=== PATIENT | male | born 1995 | race African-American/Black ===

== ENCOUNTER 2021-10-17 11:36 | Emergency (ER) | payer SELFPAY ==
[~2021-10-17] VITALS: Ht 170 cm; Wt 105.0 kg
[2021-10-17] MEDS ORDERED: RT-ALBUTEROL/IPRATROPIUM 3 ML (DUONEB) VIAL INH ONE (12:15)
--- NOTE | 2021-10-17 12:28 | ED Respiratory ---
General Chief Complaint: Respiratory Problems Stated Complaint: SOB Nursing Triage Note: PT TO [facility] BY [facility] WITH CC OF SOB Source: patient, other (commercial loan officer) (NAVEED MIDDLETON APRN) History of Present Illness Date Seen by Provider: October 17, 2021 Time Seen by Provider: 12:13 Initial Comments This is a 26-year-old male who presented to the ER via [facility] for complaints of shortness of breath over the past 3 to 4 days. He does have a history of asthma and states that he has been out of his albuterol inhaler for "quite a while". He is currently homeless and living in poor conditions in a friends shed. Reports subjective fevers, chills, wheezing, shortness of breath. He denies chest pain, nausea, vomiting, abdominal pain, rashes, or any symptoms. Did not receive COVID vaccines. (NAVEED MIDDLETON APRN) Allergies and Home Medications Allergies Coded Allergies: No Known Allergies (Verified Allergy, Unknown, 10/17/21) Patient Home Medication List Home Medication List Reviewed: Yes (NAVEED MIDDLETON APRN) Azithromycin (Azithromycin) 250 Mg Tablet, 250 MG PO DAILY Prescribed by: NAVEED MIDDLETON on 10/17/21 141 Methylprednisolone (Methylprednisolone Dose Pack) 4 Mg Tab.ds.pk, 4 MG PO UD Prescribed by: NAVEED MIDDLETON on 10/17/21 141 Review of Systems Review of Systems Constitutional: see HPI EENTM: no symptoms reported Respiratory: see HPI Cardiovascular: no symptoms reported Gastrointestinal: no symptoms reported Genitourinary: no symptoms reported Musculoskeletal: no symptoms reported Skin: no symptoms reported Psychiatric/Neurological: No Symptoms Reported Hematologic/Lymphatic: No Symptoms Reported Immunological/Allergic: no symptoms reported (NAVEED MIDDLETON APRN) Past Wfclofg-Fnovdv-Krutrl Hx Patient Social History Tobacco Use?: No Substance use?: No Alcohol Use?: No (NAVEED MIDDLETON APRN) Past Medical History Surgery/Hospitalization HX: RT ANKLE (NAVEED MIDDLETON APRN) Physical Exam Vital Signs - First Documented 10/17/21 11:45 Temp 35.8 Pulse 116 Resp 22 B/P (MAP) 146/112 (123) Pulse Ox 95 O2 Delivery Nasal Cannula O2 Flow Rate 2.00 (HUA DAVENPORT MD) Capillary Refill : Less Than 3 Seconds (NAVEED MIDDLETON APRN) Height: '" Weight: lbs. oz. kg; 36.00 BMI Method: General Appearance: WD/WN, no apparent distress Eyes: Bilateral Eye Normal Inspection, Bilateral Eye EOMI HEENT: PERRL/EOMI, normal ENT inspection, pharynx normal Neck: full range of motion, normal inspection Respiratory: chest non-tender, no respiratory distress, no accessory muscle use, decreased breath sounds, wheezing, expiration Cardiovascular: regular rate, rhythm, no edema, no murmur Gastrointestinal: normal bowel sounds, non tender, soft Extremities: non-tender, normal inspection Neurologic/Psychiatric: alert, normal mood/affect, oriented x 3 Skin: normal color, warm/dry Lymphatic: no adenopathy (NAVEED MIDDLETON APRN) Progress/Results/Core Measures Suspected Sepsis SIRS Temperature: Pulse: 116 Respiratory Rate: 22 Laboratory Tests 10/17/21 11:42: White Blood Count 8.6 Blood Pressure 146 /112 Mean: 123 Laboratory Tests 10/17/21 11:42: Creatinine 1.01, Platelet Count 362, Total Bilirubin 0.6 (NAVEED MIDDLETON APRN) Results/Orders Lab Results Laboratory Tests Test 10/17/21 11:42 10/17/21 12:00 Range/Units White Blood Count 8.6 4.3-11.0 10^3/uL Red Blood Count 5.58 H 4.30-5.52 10^6/uL Hemoglobin 17.0 13.3-17.7 g/dL Hematocrit 50 40-54 % Mean Corpuscular Volume 90 80-99 fL Mean Corpuscular Hemoglobin 31 25-34 pg Mean Corpuscular Hemoglobin Concent 34 32-36 g/dL Red Cell Distribution Width 13.8 10.0-14.5 % Platelet Count 362 130-400 10^3/uL Mean Platelet Volume 9.7 9.0-12.2 fL Immature Granulocyte % (Auto) 0 % Neutrophils (%) (Auto) 65 42-75 % Lymphocytes (%) (Auto) 22 12-44 % Monocytes (%) (Auto) 9 0-12 % Eosinophils (%) (Auto) 4 0-10 % Basophils (%) (Auto) 0 0-10 % Neutrophils # (Auto) 5.6 1.8-7.8 10^3/uL Lymphocytes # (Auto) 1.9 1.0-4.0 10^3/uL Monocytes # (Auto) 0.8 0.0-1.0 10^3/uL Eosinophils # (Auto) 0.4 H 0.0-0.3 10^3/uL Basophils # (Auto) 0.0 0.0-0.1 10^3/uL Immature Granulocyte # (Auto) 0.0 0.0-0.1 10^3/uL Sodium Level 138 135-145 MMOL/L Potassium Level 3.8 3.6-5.0 MMOL/L Chloride Level 104 98-107 MMOL/L Carbon Dioxide Level 20 L 21-32 MMOL/L Anion Gap 14 5-14 MMOL/L Blood Urea Nitrogen 7 7-18 MG/DL Creatinine 1.01 0.60-1.30 MG/DL Estimat Glomerular Filtration Rate 105 BUN/Creatinine Ratio 7 Glucose Level 98 70-105 MG/DL Calcium Level 9.5 8.5-10.1 MG/DL Corrected Calcium 9.3 8.5-10.1 MG/DL Total Bilirubin 0.6 0.1-1.0 MG/DL Aspartate Amino Transf (AST/SGOT) 20 5-34 U/L Alanine Aminotransferase (ALT/SGPT) 22 0-55 U/L Alkaline Phosphatase 78 40-136 U/L Total Protein 8.2 6.4-8.2 GM/DL Albumin 4.3 3.2-4.5 GM/DL Influenza Type A (RT-PCR) Not Detected Not Detecte Influenza Type B (RT-PCR) Not Detected Not Detecte SARS-CoV-2 RNA (RT-PCR) Not Detected Not Detecte (HUA DAVENPORT MD) Vital Signs/I&O 10/17/21 10/17/21 10/17/21 11:45 12:14 15:37 Temp 35.8 36.2 Pulse 116 137 Resp 22 22 B/P (MAP) 146/112 (123) 128/96 Pulse Ox 95 95 96 O2 Delivery Nasal Cannula Room Air Room Air O2 Flow Rate 2.00 (HUA DAVENPORT MD) Vital Signs/I&O Capillary Refill : Less Than 3 Seconds (NAVEED MIDDLETON APRN) Blood Pressure Mean: 123 Progress Note : Progress Note Patient examined and in no acute respiratory distress. His oxygen saturation is 94 to 95% he was placed on 2 L oxygen which kept him around 95% on the 2 L. He has audible expiratory wheezing. On auscultation he is diminished throughout. Orders placed for DuoNeb x1. Will reevaluate. Orders also placed for COVID and influenza swabs. After receiving DuoNeb he felt somewhat improved. He did have improved air movement with expiratory wheezing. Labs and imaging reviewed and relatively unremarkable. Given take home Albuterol inhaler and directed on use. Requested an additional Albuterol treatment prior to discharge. Administered albuterol neb and he reported feeling much improved. VSS through ED course. Will treat with steroids and cover with Azithromycin. Given first dose prior to discharge. Discharge POC reviewed with patient and with [place] police officer. He is agreeable with plan. 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 (NAVEED MIDDLETON APRN) Diagnostic Imaging Diagonstic Imaging: Xray Plain Films/CT/US/NM/MRI: chest Comments [facility], [place] NAME: KONG GAMBOA [facility] REC#: [id number] PT STATUS: REG ER : 02/22/1965 PHYSICIAN: NAVEED MIDDLETON APRN ADMIT DATE: 10/17/21/ER Signed Date of Exam:10/17/21 ANKLE, LEFT, 3 VIEWS EXAMINATION: ANKLE, LEFT, 3 VIEWS. INDICATION: Left ankle pain. COMPARISON: None available. TECHNIQUE: Three views of the left ankle. FINDINGS: No acute fracture. 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 No displaced osteochondral lesion in the talar dome. Small plantar calcaneal spur. Achilles shadow is normal. IMPRESSION: No acute fracture about the left ankle. Dictated by: Dictated on workstation # [id number] Dict: 10/17/21 1259 Trans: 10/17/21 1312 [id number] Interpreted by: RONIT MATTSON MD Electronically signed by: RONIT MATTSON MD 10/17/21 1314 (NAVEED MIDDLETON APRN) Departure Impression Primary Impression: Asthma Disposition: 01 HOME, SELF-CARE Condition: Improved Departure-Patient Inst. Decision time for Depature: 13:50 (NAVEED MIDDLETON APRN) Patient Instructions: Asthma, Adult ED Add. Discharge Instructions: Plan: 1. Follow up with [facility] this week. Please call to schedule appointment. They are able to assist with obtaining medications. 2. Use your Albuterol inhaler 2 puffs every 4 hours as needed for shortness of air. 3. Take your antibiotics and steroids as directed. Take with food. 4. Return for any new, concerning, or worsening symptoms. All discharge instructions reviewed with patient and/or family. Voiced understanding. Scripts Methylprednisolone (Methylprednisolone Dose Pack) 4 Mg Tab.ds.pk 4 MG PO UD for 6 Days, #21 PKG PER DOSE PACK INSTRUCTIONS Prov: NAVEED MIDDLETON APRN 10/17/21 Azithromycin (Azithromycin) 250 Mg Tablet 250 MG PO DAILY, #4 TAB 0 Refills Prov: NAVEED MIDDLETON APRN 10/17/21 ATTENDING PHYSICIAN NOTE: I was physically present as attending physician in the emergency department during the care of this patient, but I was not directly involved in the decision making or delivery of care for this patient. (HUA DAVENPORT MD) NAVEED MIDDLETON APRN October 17, 2021 12:28 HUA DAVENPORT MD October 19, 2021 07:41
[2021-10-17 12:31] LABS: BASOPHILS % (AUTO) 0 % (0-10); EOSINOPHILS # (AUTO) 0.4 10^3/uL (0.0-0.3); EOSINOPHILS % (AUTO) 4 % (0-10); HEMATOCRIT 50 % (40-54); LYMPHOCYTES # (AUTO) 1.9 10^3/uL (1.0-4.0); LYMPHOCYTES % (AUTO) 22 % (12-44); MEAN CORPUSCULAR HEMOGLOBIN 31 pg (25-34); MEAN CORPUSCULAR HGB CONC 34 g/dL (32-36); MEAN CORPUSCULAR VOLUME 90 fL (80-99); MEAN PLATELET VOLUME 9.7 fL (9.0-12.2); MONOCYTES # (AUTO) 0.8 10^3/uL (0.0-1.0); MONOCYTES % (AUTO) 9 % (0-12); NEUTROPHILS # (AUTO) 5.6 10^3/uL (1.8-7.8); NEUTROPHILS % (AUTO) 65 % (42-75); PLATELET COUNT 362 10^3/uL (130-400); WHITE BLOOD COUNT 8.6 10^3/uL (4.3-11.0)
[2021-10-17 12:35] LABS: ALBUMIN 4.3 GM/DL (3.2-4.5)
[2021-10-17 12:36] LABS: POTASSIUM 3.8 MMOL/L (3.6-5.0)
[2021-10-17 12:37] LABS: CALCIUM 9.5 MG/DL (8.5-10.1)
[2021-10-17 12:38] LABS: TOTAL PROTEIN 8.2 GM/DL (6.4-8.2)
[2021-10-17 12:40] LABS: BILIRUBIN,TOTAL 0.6 MG/DL (0.1-1.0)
[2021-10-17 12:42] LABS: CREATININE SERUM 1.01 MG/DL (0.60-1.30)
[2021-10-17] MEDS ORDERED: RX-ALBUTEROL INHALER 8.5 GM HFA (PROAIR) IH STA (12:54)
--- NOTE | 2021-10-17 13:40 | Diagnostic Imaging Report ---
INDICATION: Shortness of breath. FINDINGS: The lungs are clear. There is no failure, effusion, or pneumothorax. IMPRESSION: No acute appearing abnormality. Dictated by: Dictated on workstation # [id number]
[2021-10-17] MEDS ORDERED: RT-ALBUTEROL SULF 2.5 MG/3 ML PRE-MIX VIAL INH ONE (14:00)
[2021-10-17] MEDS ORDERED: methylPREDNISolone 125 MG (Solu-MEDROL) VIAL IVP ONE (14:00)
[2021-10-17] MEDS ORDERED: AZITHROMYCIN 250 MG TAB (ZITHROMAX) PO ONE (14:00)
[2021-10-17] MEDS ORDERED: METH4TAB10 PO (14:12)
[2021-10-17] MEDS ORDERED: AZIT250T12 PO (14:12)
[2021-10-17 15:37] VITALS: BP 128/96
== END 2021-10-17 15:37 | disposition home or self-care (01) ==
LOC: ER 11:39
DX: J45.909 Unspecified asthma, uncomplicated (principal); T48.6X6A Underdosing of antiasthmatics, initial encounter; Z91.120 Patient's intentional underdosing of medication regimen due to financial hardship; Z20.822 Contact with and (suspected) exposure to COVID-19; Z28.310 Unvaccinated for COVID-19
CPT/HCPCS: 36415; 71045; 80053; 85025; 87636; 94640